=== PATIENT | female | born 1975 | race Two or more races ===

== ENCOUNTER 2017-06-15 18:26 | Inpatient (IN) | payer MEDICAID ==
[~2017-06-15] VITALS: Ht 162.6 cm; Wt 95.3 kg
[2017-06-15] MEDS ORDERED: Ketorolac 30mg Inj IV ONE (19:30)
[2017-06-15] MEDS ORDERED: Morphine Sulfate 4mg/ml Inj IVP ONE (19:30)
[2017-06-15 19:47] LABS: APPEARANCE,URINE SLIGHTLY CLOUDY; BILIRUBIN, URINE NEGATIVE (NEGATIVE); COLOR,URINE AMBER; GLUCOSE, URINE (UA) NEGATIVE (NEGATIVE); KETONES,URINE 1+ (NEGATIVE); LEUKOCYTE ESTERASE ,URINE 1+ (NEGATIVE); NITRITE,URINE NEGATIVE (NEGATIVE); PH,URINE 5 (4.5-8.0); PROTEIN,URINE 2+ (NEGATIVE); UROBILINOGEN,URINE 1 MG/DL (0.0-1.0)
[2017-06-15 20:08] LABS: ANION GAP 9 mmol/L (5-15); BLOOD UREA NITROGEN 6 mg/dL (7-18); CALCIUM 9.1 MG/DL (8.5-10.1); CARBON DIOXIDE 27 MMOL/L (21-32); CHLORIDE 101 MMOL/L (98-107); CREATININE 0.8 MG/DL (0.55-1.30); POTASSIUM 3.4 MMOL/L (3.5-5.1); SODIUM 137 MMOL/L (136-145)
[2017-06-15 20:14] LABS: MEAN CORPUSCULAR VOLUME 89 FL (80-99); PLATELET COUNT 363 K/UL (150-450); RED BLOOD COUNT 4.61 M/UL (4.20-5.40); WHITE BLOOD COUNT 12.2 K/UL (4.8-10.8)
[2017-06-15 20:22] VITALS: BP 109/65
[2017-06-15 20:30] LABS: ALANINE AMINOTRANSFERASE 180 U/L (12-78); ALBUMIN 3.7 G/DL (3.4-5.0); ALBUMIN/GLOBULIN RATIO 0.8 (1.0-2.7); ALKALINE PHOSPHATASE 158 U/L (46-116); ASPARTATE AMINO TRANSFERASE 275 U/L (15-37); BILIRUBIN,TOTAL 2.2 MG/DL (0.2-1.0)
[2017-06-15 20:43] LABS: BILIRUBIN,DIRECT 0.7 MG/DL (0.0-0.3)
[2017-06-15] MEDS ORDERED: Cefepime 1gm vial ONE (20:53)
[2017-06-15] MEDS ORDERED: Cefepime HCl 1 GM in D5W 55 ML IVPB ONE (21:00)
[2017-06-15 22:30] VITALS: BP 112/68
[2017-06-15] MEDS ORDERED: Piperacillin/Tazobactam 3.375 GM in NS 110 ML IVPB ONE (22:45)
--- NOTE | 2017-06-15 22:50 | Emergency Room Report ---
History of Present Illness General Chief Complaint: Abdominal Pain Source: Patient Present Illness HPI Patient presents with 2-3 days of RUQ pain. Pain is 8-9/10, constant and radiates to her back. Not eating for 1 day. Feverish, but no documented temperature. She had this pain 1 month ago, but did not seek treatment. She took stool softener and moved her bowels today. No other medicines taken for pain. No chest pain, cough, sore throat, dysuria. Menses irregular due to IUD - LNMP 05/15. She doesn't think she is . Allergies: Coded Allergies: No Known Allergies (Unverified , 06/15/17) Patient History Past Medical History: see triage record Social History: Denies: smoking, alcohol use Social History Narrative Has 4 children - youngest 4 and oldest 15 - Last Menstrual Period: last month Now: No Reviewed Nursing Documentation: PMH: Agreed, PSxH: Agreed Nursing Documentation-PMH Past Medical History: No Stated History Review of Systems All Other Systems: negative except mentioned in HPI Physical Exam Vital Signs Date Time Temp Pulse Resp B/P (MAP) Pulse Ox O2 Delivery O2 Flow Rate FiO2 06/15/17 18:45 98.7 111 22 111/70 98 Room Air 98.8 Sp02 EP Interpretation: reviewed, normal General Appearance: well appearing, no apparent distress - in pain, GCS 15 Head: normocephalic Eyes: bilateral eye normal inspection, bilateral eye PERRL, bilateral eye anticteric ENT: moist mucus membranes Neck: supple Respiratory: lungs clear, normal breath sounds Cardiovascular #1: regular rate, rhythm Cardiovascular #2: 2+ radial (R) Gastrointestinal: normal inspection, normal bowel sounds, no mass, non- distended, no rebound, guarding - RUQ, tenderness Genitourinary: no CVA tenderness Musculoskeletal: back normal, gait/station normal, normal range of motion Neurologic: alert, oriented x3, grossly normal Psychiatric: mood/affect normal Skin: normal inspection, warm/dry Medical Decision Making Diagnostic Impression: Primary Impression: Acute cholecystitis ER Course Patient presents with right upper quadrant pain. She has significant guarding. Differential includes acute cholecystitis, cholelithiasis, peptic ulcer disease, pancreatitis amongst others She is at risk for having cholecystitis. Evaluation will be with labs and ultrasound. She'll be getting IV hydration and analgesics. Labs are significant for leukocytosis and elevated liver function tests. Cefepime is begun. Pain is somewhat improved. Ultrasound was performed that showed thickened gallbladder wall and gallstones. The there is negative Cervantes's sign at this time. Patient is pain-free at this time however because of labs shows a diagnosis of acute cholecystitis and is admitted to the hospital under the care of Dr. Hughes. The patient was discussed with Dr. Azul who agreed to consult and was considering surgery in the morning. The diagnosis and the possibility of surgery was discussed with of the patient and her . Laboratory Tests Test 06/15/17 19:20 06/15/17 19:35 Urine Color Cristina Urine Appearance Slightly cloudy Urine pH 5 (4.5-8.0) Urine Specific [place] 1.020 (1.005-1.035) Urine Protein 2+ (NEGATIVE) H Urine Glucose (UA) Negative (NEGATIVE) Urine Ketones 1+ (NEGATIVE) H Urine Occult Blood 3+ (NEGATIVE) H Urine Nitrite Negative (NEGATIVE) Urine Bilirubin Negative (NEGATIVE) Urine Ictotest Negative Urine Urobilinogen 1 MG/DL (0.0-1.0) H Urine Leukocyte Esterase 1+ (NEGATIVE) H Urine RBC 15-20 /HPF (0 - 2) H Urine WBC 5-10 /HPF (0 - 2) H Urine Squamous Epithelial Cells Many /LPF (NONE/OCC) H Urine Bacteria Few /HPF (NONE) Urine HCG, Qualitative Negative (NEGATIVE) White Blood Count 12.2 K/UL (4.8-10.8) H Red Blood Count 4.61 M/UL (4.20-5.40) Hemoglobin 14.0 G/DL (12.0-16.0) Hematocrit 41.0 % (37.0-47.0) Mean Corpuscular Volume 89 FL (80-99) Mean Corpuscular Hemoglobin 30.4 PG (27.0-31.0) Mean Corpuscular Hemoglobin Concent 34.2 G/DL (32.0-36.0) Red Cell Distribution Width 12.0 % (11.6-14.8) Platelet Count 363 K/UL (150-450) Mean Platelet Volume 7.7 FL (6.5-10.1) Neutrophils (%) (Auto) % (45.0-75.0) Lymphocytes (%) (Auto) % (20.0-45.0) Monocytes (%) (Auto) % (1.0-10.0) Eosinophils (%) (Auto) % (0.0-3.0) Basophils (%) (Auto) % (0.0-2.0) Differential Total Cells Counted 100 Neutrophils % (Manual) 90 % (45-75) H Lymphocytes % (Manual) 8 % (20-45) L Monocytes % (Manual) 2 % (1-10) Eosinophils % (Manual) 0 % (0-3) Basophils % (Manual) 0 % (0-2) Band Neutrophils 0 % (0-8) Platelet Estimate Adequate Platelet Morphology Normal Red Blood Cell Morphology Normal Prothrombin Time 10.3 SEC (9.30-11.50) Prothrombin Time INR 1.0 (0.9-1.1) PTT 28 SEC (23-33) Sodium Level 137 MMOL/L (136-145) Potassium Level 3.4 MMOL/L (3.5-5.1) L Chloride Level 101 MMOL/L (98-107) Carbon Dioxide Level 27 MMOL/L (21-32) Anion Gap 9 mmol/L (5-15) Blood Urea Nitrogen 6 mg/dL (7-18) L Creatinine 0.8 MG/DL (0.55-1.30) Estimate Glomerular Filtration Rate > 60 mL/min (>60) Glucose Level 113 MG/DL (74-106) H Calcium Level 9.1 MG/DL (8.5-10.1) Total Bilirubin 2.2 MG/DL (0.2-1.0) H Direct Bilirubin 0.7 MG/DL (0.0-0.3) H Aspartate Amino Transferase (AST) 275 U/L (15-37) H Alanine Aminotransferase (ALT) 180 U/L (12-78) H Alkaline Phosphatase 158 U/L (46-116) H Total Protein 8.4 G/DL (6.4-8.2) H Albumin 3.7 G/DL (3.4-5.0) Globulin 4.7 g/dL Albumin/Globulin Ratio 0.8 (1.0-2.7) L Lipase 100 U/L (73-393) CT/MRI/US Diagnostic Results CT/MRI/US Diagnostic Results : Imaging Test Ordered: abd ultrasound Impression gallstones and thickened gall bladder wall. Last Vital Signs Date Time Temp Pulse Resp B/P (MAP) Pulse Ox O2 Delivery O2 Flow Rate FiO2 06/16/17 01:38 98.6 86 15 95/52 100 Room Air 98.6 Status: improved Disposition: ADMITTED INPATIENT Condition: Serious Scripts No Active Prescriptions or Reported Meds Referrals: NOT CHOSEN IPA/,REFERRING (PCP) Dariel Benítez M.D. Jun 15, 2017 22:50
[2017-06-15] MEDS ORDERED: Zosyn 3.375gm inj ONE (22:59)
[2017-06-16] VITALS (8 sets, daily range): BP systolic 95–121; BP diastolic 52–77
[2017-06-16] MEDS: D5 1/2NS 1,000 ML IV SCH ×2 (03:52→08:18)
[2017-06-16 04:19] LABS: EOSINOPHILS % (AUTO) 1.5 % (0.0-3.0); HEMATOCRIT 33.5 % (37.0-47.0); HEMOGLOBIN 11.5 G/DL (12.0-16.0); LYMPHOCYTES % (AUTO) 32.4 % (20.0-45.0); MEAN CORPUSCULAR VOLUME 89 FL (80-99); MONOCYTES % (AUTO) 9.5 % (1.0-10.0); NEUTROPHILS % (AUTO) 55.7 % (45.0-75.0); PLATELET COUNT 268 K/UL (150-450); RED BLOOD COUNT 3.75 M/UL (4.20-5.40); WHITE BLOOD COUNT 6.1 K/UL (4.8-10.8)
[2017-06-16 04:34] LABS: ANION GAP 3 mmol/L (5-15); BLOOD UREA NITROGEN 4 mg/dL (7-18); CARBON DIOXIDE 30 MMOL/L (21-32); CHLORIDE 106 MMOL/L (98-107); CREATININE 0.8 MG/DL (0.55-1.30); POTASSIUM 3.8 MMOL/L (3.5-5.1); SODIUM 139 MMOL/L (136-145)
--- NOTE | 2017-06-16 08:56 | General Surgery Progress Note ---
General Surgery-Progress Note Subjective Symptoms: improved Objective Last 24 Hour Vital Signs Date Time Temp Pulse Resp B/P (MAP) Pulse Ox O2 Delivery O2 Flow Rate FiO2 06/16/17 08:00 97.7 81 18 121/77 97 97.7 06/16/17 07:40 98.5 80 17 108/66 98 Room Air 98.8 06/16/17 06:16 98.8 77 15 99/53 100 Room Air 98.8 06/16/17 04:26 98.6 75 15 98/54 100 Room Air 98.6 06/16/17 02:34 98.6 82 15 98/58 100 Room Air 98.6 06/16/17 01:38 98.6 86 15 95/52 100 Room Air 98.6 06/16/17 00:23 98.3 91 13 96/58 97 Room Air 98.3 06/15/17 22:30 98.5 103 14 112/68 100 Room Air 98.5 06/15/17 20:37 98.6 06/15/17 20:22 98.6 99 21 109/65 100 Room Air 98.6 06/15/17 20:17 98.7 06/15/17 20:07 98.7 06/15/17 19:47 98.7 06/15/17 18:45 98.7 111 22 111/70 98 Room Air 98.8 I&O Intake and Output 06/15/17 06/16/17 19:00 07:00 Intake Total 1000 ml Balance 1000 ml Intake Oral 0 ml IV Total 1000 ml # Voids 1 Respiratory: clear Abdomen: soft, flat, non-tender, present bowel sounds Extremities: no tenderness Laboratory Tests Test 06/15/17 19:20 06/15/17 19:35 06/16/17 04:05 Urine Color Cristina Urine Appearance Slightly cloudy Urine pH 5 (4.5-8.0) Urine Specific [place] 1.020 (1.005-1.035) Urine Protein 2+ (NEGATIVE) H Urine Glucose (UA) Negative (NEGATIVE) Urine Ketones 1+ (NEGATIVE) H Urine Occult Blood 3+ (NEGATIVE) H Urine Nitrite Negative (NEGATIVE) Urine Bilirubin Negative (NEGATIVE) Urine Ictotest Negative Urine Urobilinogen 1 MG/DL (0.0-1.0) H Urine Leukocyte Esterase 1+ (NEGATIVE) H Urine RBC 15-20 /HPF (0 - 2) H Urine WBC 5-10 /HPF (0 - 2) H Urine Squamous Epithelial Cells Many /LPF (NONE/OCC) H Urine Bacteria Few /HPF (NONE) Urine HCG, Qualitative Negative (NEGATIVE) White Blood Count 12.2 K/UL (4.8-10.8) H 6.1 K/UL (4.8-10.8) Red Blood Count 4.61 M/UL (4.20-5.40) 3.75 M/UL (4.20-5.40) L Hemoglobin 14.0 G/DL (12.0-16.0) 11.5 G/DL (12.0-16.0) L Hematocrit 41.0 % (37.0-47.0) 33.5 % (37.0-47.0) L Mean Corpuscular Volume 89 FL (80-99) 89 FL (80-99) Mean Corpuscular Hemoglobin 30.4 PG (27.0-31.0) 30.7 PG (27.0-31.0) Mean Corpuscular Hemoglobin Concent 34.2 G/DL (32.0-36.0) 34.3 G/DL (32.0-36.0) Red Cell Distribution Width 12.0 % (11.6-14.8) 12.0 % (11.6-14.8) Platelet Count 363 K/UL (150-450) 268 K/UL (150-450) Mean Platelet Volume 7.7 FL (6.5-10.1) 8.2 FL (6.5-10.1) Neutrophils (%) (Auto) % (45.0-75.0) 55.7 % (45.0-75.0) Lymphocytes (%) (Auto) % (20.0-45.0) 32.4 % (20.0-45.0) Monocytes (%) (Auto) % (1.0-10.0) 9.5 % (1.0-10.0) Eosinophils (%) (Auto) % (0.0-3.0) 1.5 % (0.0-3.0) Basophils (%) (Auto) % (0.0-2.0) 1.0 % (0.0-2.0) Differential Total Cells Counted 100 Neutrophils % (Manual) 90 % (45-75) H Lymphocytes % (Manual) 8 % (20-45) L Monocytes % (Manual) 2 % (1-10) Eosinophils % (Manual) 0 % (0-3) Basophils % (Manual) 0 % (0-2) Band Neutrophils 0 % (0-8) Platelet Estimate Adequate Platelet Morphology Normal Red Blood Cell Morphology Normal Prothrombin Time 10.3 SEC (9.30-11.50) Prothromb Time International Ratio 1.0 (0.9-1.1) Activated Partial Thromboplast Time 28 SEC (23-33) Sodium Level 137 MMOL/L (136-145) 139 MMOL/L (136-145) Potassium Level 3.4 MMOL/L (3.5-5.1) L 3.8 MMOL/L (3.5-5.1) Chloride Level 101 MMOL/L (98-107) 106 MMOL/L (98-107) Carbon Dioxide Level 27 MMOL/L (21-32) 30 MMOL/L (21-32) Anion Gap 9 mmol/L (5-15) 3 mmol/L (5-15) L Blood Urea Nitrogen 6 mg/dL (7-18) L 4 mg/dL (7-18) L Creatinine 0.8 MG/DL (0.55-1.30) 0.8 MG/DL (0.55-1.30) Estimat Glomerular Filtration Rate > 60 mL/min (>60) > 60 mL/min (>60) Glucose Level 113 MG/DL (74-106) H 109 MG/DL (74-106) H Calcium Level 9.1 MG/DL (8.5-10.1) 8.0 MG/DL (8.5-10.1) L Total Bilirubin 2.2 MG/DL (0.2-1.0) H Direct Bilirubin 0.7 MG/DL (0.0-0.3) H Aspartate Amino Transf (AST/SGOT) 275 U/L (15-37) H Alanine Aminotransferase (ALT/SGPT) 180 U/L (12-78) H Alkaline Phosphatase 158 U/L (46-116) H Total Protein 8.4 G/DL (6.4-8.2) H Albumin 3.7 G/DL (3.4-5.0) Globulin 4.7 g/dL Albumin/Globulin Ratio 0.8 (1.0-2.7) L Lipase 100 U/L (73-393) Assessment Additional Comments Cholelithiasis Plan Additional Comments patient does not have any pain at this time she will be started on diet. If she can tolerate diet she can be discharged home. Follow up with [facility] for elective cholecystectomy GARRETT IRAHETA Jun 16, 2017 08:55
--- NOTE | 2017-06-16 10:21 | Diagnostic Imaging Report ---
Indication: Right upper quadrant pain x2 days Technique: Cabrera-scale and duplex images of the upper abdomen were obtained Comparison: none Findings: Gallbladder demonstrates gallstones. The gallbladder wall is markedly thickened, measuring 14 mm thick. There is also some pericholecystic fluid. Sonographic Cervantes's sign is negative, although technologist reports the patient is on pain medications. Common bile duct measures 6 mm in diameter. No intrahepatic biliary ductal dilatation. Liver demonstrates normal echogenicity, no focal abnormality. Portal vein and hepatic veins are patent. Pancreas is unremarkable. Spleen is unremarkable. Left kidney measures 11 cm in length. Right kidney measures 11 cm length. Both kidneys demonstrate normal echogenicity. There is no hydronephrosis. No focal abnormality . Abdominal aorta was not imaged, reason not stated . Impression: Cholelithiasis. Gallbladder wall is markedly thickened, measuring 14 mm. While possibly representing acute cholecystitis, this degree of wall thickening is somewhat unusual, and could indicate adjacent hepatocellular inflammation. Recommend relational liver function tests, consider hepatobiliary nuclear scan for further evaluation Negative for dilated ducts Note nonvisualization of the abdominal aorta, reason not stated
--- NOTE | 2017-06-16 11:15 | Consultation ---
DATE OF CONSULTATION: 06/16/2017 CONSULTING PHYSICIAN: Jaziel Azul M.D. REASON FOR CONSULTATION: Abdominal pain. REQUESTING PHYSICIAN: Alfredo Hughes D.O. HISTORY OF PRESENT ILLNESS: This is a 42-year-old female, who presented to emergency room complaining of abdominal pain for two days. The pain was located at right upper quadrant and associated with nausea and vomiting. She denied any fever, cough, dysuria, or frequency. She stated that a month ago, she had similar pain, but it was of less intensity. In the emergency room, ultrasound has been performed which has shown cholelithiasis. PAST MEDICAL HISTORY: She denied allergies, asthma, diabetes, hypertension, chronic renal disease. PAST SURGICAL HISTORY: None. MEDICATIONS: None. SOCIAL HISTORY: The patient is a 42-year-old female, who is with three children. She is unemployed. Denies smoking and drinking. REVIEW OF SYSTEMS: Noncontributory. PHYSICAL EXAMINATION: GENERAL: The patient appeared to be a well-developed, well-nourished, 42-year-old female, lying in the bed, in no acute distress. HEENT: Head is normocephalic and atraumatic. Eyes, pupils are equal, round, and reactive to light. The sclerae are nonicteric. Mouth is clear. Throat is clear. NECK: There is no palpable thyromegaly or adenopathy. CHEST: Clear to auscultation and percussion. HEART: There is no gallop or murmur. S1 and S2 are within normal limits. ABDOMEN: Soft, flat, nontender. There is no palpable organomegaly. Bowel sounds are audible. GENITAL: Deferred. EXTREMITIES: Within normal limits. LABORATORY AND DIAGNOSTIC DATA: CBC, last night was 12,200 with left shift, but this morning, WBC is 6100 with normal differential. Chemistry last night showed total bilirubin of 2.2 with direct bilirubin of 0.7. The liver enzymes were slightly elevated. Ultrasound had shown cholelithiasis. ASSESSMENT: Cholelithiasis. RECOMMENDATION: At this time, the pain has been resolved and the patient is not nauseated, so she will be started on diet and if she can tolerate the diet, she can be discharged home to be followed at the [facility] for an elective laparoscopic cholecystectomy. Jaziel Azul M.D. DR: Kamilah JOB#: [id number] CC:
--- NOTE | 2017-06-16 11:34 | GI Initial Consult Note ---
History of Present Illness General Date patient seen: Jun 16, 2017 Time patient seen: 11:32 Reason for Hospitalization: Abdominal Pain Referring physician: MATTHEW CRUZ Reason for Consultation: ABDOMINAL PAIN Present Illness HPI Patient presents with 2-3 days of RUQ pain. Pain is 8-9/10, constant and radiates to her back. Not eating for 1 day. Feverish, but no documented temperature. She had this pain 1 month ago, but did not seek treatment. She took stool softener and moved her bowels today. No other medicines taken for pain. No chest pain, cough, sore throat, dysuria. Menses irregular due to IUD - LNMP 05/15. She doesn't think she is . GI consulted for abdominal pain. Pt seen, awake A&Ox4 NAD with no active s/sx of N/V/D. States her abdominal pain is gone, but has abdominal tenderness. U/ S down in ED shows thickened gallbladder wall and gallstones. The there is negative Cervantes's sign at this time. She presents today with abnormal LFTs. No history of endoscopy / colonoscopy. Home Meds No Active Prescriptions or Reported Meds Med list reviewed/reconciled: Yes Allergies: Coded Allergies: No Known Allergies (Unverified , 06/15/17) Patient History History Provided By: Patient, Medical Record PMH Narrative Past Medical History: see triage record Social History: Denies: smoking, alcohol use Social History Narrative Has 4 children - youngest 4 and oldest 15 - Last Menstrual Period: last month Now: No Reviewed Nursing Documentation: PMH: Agreed, PSxH: Agreed Nursing Documentation-PM Past Medical History: No Stated History Review of Systems All Other Systems: negative except mentioned in HPI Physical Exam Vital Signs Date Time Temp Pulse Resp B/P (MAP) Pulse Ox O2 Delivery O2 Flow Rate FiO2 06/15/17 18:45 98.7 111 22 111/70 98 Room Air 98.8 Sp02 EP Interpretation: reviewed, normal Labs Laboratory Tests Test 06/15/17 19:20 06/15/17 19:35 06/16/17 04:05 Urine Color Cristina Urine Appearance Slightly cloudy Urine pH 5 (4.5-8.0) Urine Specific [place] 1.020 (1.005-1.035) Urine Protein 2+ (NEGATIVE) H Urine Glucose (UA) Negative (NEGATIVE) Urine Ketones 1+ (NEGATIVE) H Urine Occult Blood 3+ (NEGATIVE) H Urine Nitrite Negative (NEGATIVE) Urine Bilirubin Negative (NEGATIVE) Urine Ictotest Negative Urine Urobilinogen 1 MG/DL (0.0-1.0) H Urine Leukocyte Esterase 1+ (NEGATIVE) H Urine RBC 15-20 /HPF (0 - 2) H Urine WBC 5-10 /HPF (0 - 2) H Urine Squamous Epithelial Cells Many /LPF (NONE/OCC) H Urine Bacteria Few /HPF (NONE) Urine HCG, Qualitative Negative (NEGATIVE) White Blood Count 12.2 K/UL (4.8-10.8) H 6.1 K/UL (4.8-10.8) Red Blood Count 4.61 M/UL (4.20-5.40) 3.75 M/UL (4.20-5.40) L Hemoglobin 14.0 G/DL (12.0-16.0) 11.5 G/DL (12.0-16.0) L Hematocrit 41.0 % (37.0-47.0) 33.5 % (37.0-47.0) L Mean Corpuscular Volume 89 FL (80-99) 89 FL (80-99) Mean Corpuscular Hemoglobin 30.4 PG (27.0-31.0) 30.7 PG (27.0-31.0) Mean Corpuscular Hemoglobin Concent 34.2 G/DL (32.0-36.0) 34.3 G/DL (32.0-36.0) Red Cell Distribution Width 12.0 % (11.6-14.8) 12.0 % (11.6-14.8) Platelet Count 363 K/UL (150-450) 268 K/UL (150-450) Mean Platelet Volume 7.7 FL (6.5-10.1) 8.2 FL (6.5-10.1) Neutrophils (%) (Auto) % (45.0-75.0) 55.7 % (45.0-75.0) Lymphocytes (%) (Auto) % (20.0-45.0) 32.4 % (20.0-45.0) Monocytes (%) (Auto) % (1.0-10.0) 9.5 % (1.0-10.0) Eosinophils (%) (Auto) % (0.0-3.0) 1.5 % (0.0-3.0) Basophils (%) (Auto) % (0.0-2.0) 1.0 % (0.0-2.0) Differential Total Cells Counted 100 Neutrophils % (Manual) 90 % (45-75) H Lymphocytes % (Manual) 8 % (20-45) L Monocytes % (Manual) 2 % (1-10) Eosinophils % (Manual) 0 % (0-3) Basophils % (Manual) 0 % (0-2) Band Neutrophils 0 % (0-8) Platelet Estimate Adequate Platelet Morphology Normal Red Blood Cell Morphology Normal Prothrombin Time 10.3 SEC (9.30-11.50) Prothromb Time International Ratio 1.0 (0.9-1.1) Activated Partial Thromboplast Time 28 SEC (23-33) Sodium Level 137 MMOL/L (136-145) 139 MMOL/L (136-145) Potassium Level 3.4 MMOL/L (3.5-5.1) L 3.8 MMOL/L (3.5-5.1) Chloride Level 101 MMOL/L (98-107) 106 MMOL/L (98-107) Carbon Dioxide Level 27 MMOL/L (21-32) 30 MMOL/L (21-32) Anion Gap 9 mmol/L (5-15) 3 mmol/L (5-15) L Blood Urea Nitrogen 6 mg/dL (7-18) L 4 mg/dL (7-18) L Creatinine 0.8 MG/DL (0.55-1.30) 0.8 MG/DL (0.55-1.30) Estimat Glomerular Filtration Rate > 60 mL/min (>60) > 60 mL/min (>60) Glucose Level 113 MG/DL (74-106) H 109 MG/DL (74-106) H Calcium Level 9.1 MG/DL (8.5-10.1) 8.0 MG/DL (8.5-10.1) L Total Bilirubin 2.2 MG/DL (0.2-1.0) H Direct Bilirubin 0.7 MG/DL (0.0-0.3) H Aspartate Amino Transf (AST/SGOT) 275 U/L (15-37) H Alanine Aminotransferase (ALT/SGPT) 180 U/L (12-78) H Alkaline Phosphatase 158 U/L (46-116) H Total Protein 8.4 G/DL (6.4-8.2) H Albumin 3.7 G/DL (3.4-5.0) Globulin 4.7 g/dL Albumin/Globulin Ratio 0.8 (1.0-2.7) L Lipase 100 U/L (73-393) General Appearance: well appearing, no apparent distress, alert, obese Head: normocephalic EENT: PERRL/EOMI, normal ENT inspection Neck: supple Respiratory: normal breath sounds, no respiratory distress Cardiovascular: normal rate Gastrointestinal: normal inspection, non tender, soft, normal bowel sounds, non -distended Rectal: deferred Genitourinary: no CVA tenderness Musculoskeletal: normal inspection, back normal Neurologic: normal inspection, alert, oriented x3, responsive Psychiatric: normal inspection, judgement/insight normal, memory normal Skin: normal inspection, normal color, no rash, warm/dry, palpation normal, well hydrated Lymphatic: normal inspection, no adenopathy Current Medications Current Medications Medications (Trade) Dose Ordered Sig/Sarika Route PRN Reason Start Time Stop Time Status Last Admin Dose Admin Acetaminophen (Tylenol) 650 mg Q4H PRN ORAL Mild Pain (Pain Scale 1-3) 06/16/17 03:30 07/16/17 03:29 06/16/17 10:17 Dextrose/Sodium Chloride 1,000 ml @ 50 mls/hr Q20H IV 06/16/17 03:30 07/16/17 03:29 06/16/17 03:52 Morphine Sulfate (Morphine Sulfate) 2 mg Q4H PRN IVP For Pain 06/16/17 03:30 06/23/17 03:29 Ondansetron HCl (Zofran) 4 mg Q4H PRN IVP Nausea & Vomiting 06/16/17 03:30 07/16/17 03:29 GI: Plan Problems: (1) Acute cholecystitis (2) Cholecystitis Plan f/u surgical recs >> no surgical intervention at this time f/u abdominal U/S adv diet as tolerated pain mgmt ppi trend LFTs fu labs Discussed with Dr. Keith. Thank you for this patient referral, we will follow. Cora Merritt N.P. Jun 16, 2017 11:34
--- NOTE | 2017-06-16 11:44 | Consultation ---
History of Present Illness General Date patient seen: Jun 16, 2017 Time patient seen: 11:34 Chief Complaint: Abdominal Pain Present Illness HPI 42 y/o F with no prior medical hx presents to ED on 06/15 with 2 days of constant RUQ abd pain w/ radiation to the back associated with nausea and vomiting, subjective fevers. Of note, had similar episodes about 1 month ago but of less intensity. Denies fever, cough, dysuria, frequency, CP, sore throat. Afebrile, initial leukocytosis, now resolved. Abd US choleithiasis, now pain has resolved. eating. Allergies: Coded Allergies: No Known Allergies (Unverified , 06/15/17) Medication History No Active Prescriptions or Reported Meds Patient History Healthcare decision maker Resuscitation status Advanced Directive on File Patient History Narrative Pmhx: as above Shx: with three children. She is unemployed. Denies smoking and drinking. Fhx: non contributory Review of Systems All Other Systems: negative except mentioned in HPI Physical Exam Physical Exam Narrative GENERAL: The patient appeared to be a well-developed, well-nourished, 42-year-old female, lying in the bed, in no acute distress. HEENT: Head is normocephalic and atraumatic. Eyes, pupils are equal, round, and reactive to light. The sclerae are nonicteric. Mouth is clear. Throat is clear. NECK: There is no palpable thyromegaly or adenopathy. CHEST: Clear to auscultation and percussion. HEART: There is no gallop or murmur. S1 and S2 are within normal limits. ABDOMEN: Soft, flat, nontender. There is no palpable organomegaly. Bowel sounds are audible. EXTREMITIES: Within normal limits Last 24 Hour Vital Signs Date Time Temp Pulse Resp B/P (MAP) Pulse Ox O2 Delivery O2 Flow Rate FiO2 06/16/17 11:16 97.7 06/16/17 08:00 97.7 81 18 121/77 97 97.7 06/16/17 07:40 98.5 80 17 108/66 98 Room Air 98.8 06/16/17 06:16 98.8 77 15 99/53 100 Room Air 98.8 06/16/17 04:26 98.6 75 15 98/54 100 Room Air 98.6 3/19/18 02:34 98.6 82 15 98/58 100 Room Air 98.6 06/16/17 01:38 98.6 86 15 95/52 100 Room Air 98.6 06/16/17 00:23 98.3 91 13 96/58 97 Room Air 98.3 06/15/17 22:30 98.5 103 14 112/68 100 Room Air 98.5 06/15/17 20:37 98.6 06/15/17 20:22 98.6 99 21 109/65 100 Room Air 98.6 06/15/17 20:17 98.7 06/15/17 20:07 98.7 06/15/17 19:47 98.7 06/15/17 18:45 98.7 111 22 111/70 98 Room Air 98.8 Intake and Output 06/15/17 06/16/17 19:00 07:00 Intake Total 1000 ml Balance 1000 ml Intake Oral 0 ml IV Total 1000 ml # Voids 1 Laboratory Tests Test 06/15/17 19:20 06/15/17 19:35 06/16/17 04:05 Urine Color Cristina Urine Appearance Slightly cloudy Urine pH 5 (4.5-8.0) Urine Specific [place] 1.020 (1.005-1.035) Urine Protein 2+ (NEGATIVE) H Urine Glucose (UA) Negative (NEGATIVE) Urine Ketones 1+ (NEGATIVE) H Urine Occult Blood 3+ (NEGATIVE) H Urine Nitrite Negative (NEGATIVE) Urine Bilirubin Negative (NEGATIVE) Urine Ictotest Negative Urine Urobilinogen 1 MG/DL (0.0-1.0) H Urine Leukocyte Esterase 1+ (NEGATIVE) H Urine RBC 15-20 /HPF (0 - 2) H Urine WBC 5-10 /HPF (0 - 2) H Urine Squamous Epithelial Cells Many /LPF (NONE/OCC) H Urine Bacteria Few /HPF (NONE) Urine HCG, Qualitative Negative (NEGATIVE) White Blood Count 12.2 K/UL (4.8-10.8) H 6.1 K/UL (4.8-10.8) Red Blood Count 4.61 M/UL (4.20-5.40) 3.75 M/UL (4.20-5.40) L Hemoglobin 14.0 G/DL (12.0-16.0) 11.5 G/DL (12.0-16.0) L Hematocrit 41.0 % (37.0-47.0) 33.5 % (37.0-47.0) L Mean Corpuscular Volume 89 FL (80-99) 89 FL (80-99) Mean Corpuscular Hemoglobin 30.4 PG (27.0-31.0) 30.7 PG (27.0-31.0) Mean Corpuscular Hemoglobin Concent 34.2 G/DL (32.0-36.0) 34.3 G/DL (32.0-36.0) Red Cell Distribution Width 12.0 % (11.6-14.8) 12.0 % (11.6-14.8) Platelet Count 363 K/UL (150-450) 268 K/UL (150-450) Mean Platelet Volume 7.7 FL (6.5-10.1) 8.2 FL (6.5-10.1) Neutrophils (%) (Auto) % (45.0-75.0) 55.7 % (45.0-75.0) Lymphocytes (%) (Auto) % (20.0-45.0) 32.4 % (20.0-45.0) Monocytes (%) (Auto) % (1.0-10.0) 9.5 % (1.0-10.0) Eosinophils (%) (Auto) % (0.0-3.0) 1.5 % (0.0-3.0) Basophils (%) (Auto) % (0.0-2.0) 1.0 % (0.0-2.0) Differential Total Cells Counted 100 Neutrophils % (Manual) 90 % (45-75) H Lymphocytes % (Manual) 8 % (20-45) L Monocytes % (Manual) 2 % (1-10) Eosinophils % (Manual) 0 % (0-3) Basophils % (Manual) 0 % (0-2) Band Neutrophils 0 % (0-8) Platelet Estimate Adequate Platelet Morphology Normal Red Blood Cell Morphology Normal Prothrombin Time 10.3 SEC (9.30-11.50) Prothromb Time International Ratio 1.0 (0.9-1.1) Activated Partial Thromboplast Time 28 SEC (23-33) Sodium Level 137 MMOL/L (136-145) 139 MMOL/L (136-145) Potassium Level 3.4 MMOL/L (3.5-5.1) L 3.8 MMOL/L (3.5-5.1) Chloride Level 101 MMOL/L (98-107) 106 MMOL/L (98-107) Carbon Dioxide Level 27 MMOL/L (21-32) 30 MMOL/L (21-32) Anion Gap 9 mmol/L (5-15) 3 mmol/L (5-15) L Blood Urea Nitrogen 6 mg/dL (7-18) L 4 mg/dL (7-18) L Creatinine 0.8 MG/DL (0.55-1.30) 0.8 MG/DL (0.55-1.30) Estimat Glomerular Filtration Rate > 60 mL/min (>60) > 60 mL/min (>60) Glucose Level 113 MG/DL (74-106) H 109 MG/DL (74-106) H Calcium Level 9.1 MG/DL (8.5-10.1) 8.0 MG/DL (8.5-10.1) L Total Bilirubin 2.2 MG/DL (0.2-1.0) H Direct Bilirubin 0.7 MG/DL (0.0-0.3) H Aspartate Amino Transf (AST/SGOT) 275 U/L (15-37) H Alanine Aminotransferase (ALT/SGPT) 180 U/L (12-78) H Alkaline Phosphatase 158 U/L (46-116) H Total Protein 8.4 G/DL (6.4-8.2) H Albumin 3.7 G/DL (3.4-5.0) Globulin 4.7 g/dL Albumin/Globulin Ratio 0.8 (1.0-2.7) L Lipase 100 U/L (73-393) Height (Feet): 5 Height (Inches): 4.00 Weight (Pounds): 210 Medications Current Medications Medications (Trade) Dose Ordered Sig/Sarika Route PRN Reason Start Time Stop Time Status Last Admin Dose Admin Acetaminophen (Tylenol) 650 mg Q4H PRN ORAL Mild Pain (Pain Scale 1-3) 06/16/17 03:30 07/16/17 03:29 06/16/17 10:17 Dextrose/Sodium Chloride 1,000 ml @ 50 mls/hr Q20H IV 06/16/17 03:30 07/16/17 03:29 06/16/17 03:52 Morphine Sulfate (Morphine Sulfate) 2 mg Q4H PRN IVP For Pain 06/16/17 03:30 06/23/17 03:29 Ondansetron HCl (Zofran) 4 mg Q4H PRN IVP Nausea & Vomiting 06/16/17 03:30 07/16/17 03:29 Assessment/Plan Assessment/Plan Abx: Zosyn x1 06/15 Cefepime x1 06/15 Assessment: Biliary colic, resolved Symptomatic cholelithiasis -Abd US: Cholelithiasis. Gallbladder wall is markedly thickened, measuring 14 mm.While possibly representing acute cholecystitis, this degree of wall thickening is somewhat unusual, and could indicate adjacent hepatocellular inflammation. Recommend relational liver function tests, consider hepatobiliary nuclear scan for further evaluation. Negative for dilated ducts Mild leukocytosis, resolved- likely reactive -afebrile -u/a wbc 5-10, nit negm leuk +1 Elevated LFTs, bilirubin Plan: -Continue to monitor off abx -Monitor CBC/CMP, temperatures -symptomatic treatment -outpatient surgery f/u Thank you for this consultation. Will continue to follow along with you. Discussed with NICOLE. Garima Elizabeth M.D. Jun 16, 2017 11:44
[2017-06-16] MEDS: Morphine Sulfate 2mg/ml Inj IVP PRN (14:55)
--- NOTE | 2017-06-16 17:50 | Diagnostic Imaging Report ---
Indications: 42 year old female with abdominal pain and abnormal ultrasound Technique: IV administration 5.4 mCi 99 M technetium Choletec. Serial images obtained over the abdomen for 2 hrs Comparison: None Findings: Prompt tracer uptake within the liver. Somewhat slow excretion of tracer. Extrahepatic bile ducts are seen at 43 minutes. Excretion into the duodenum demonstrated at 55 minutes. Gallbladder equivocal early visualized at one hour 49 minutes. Impression: Delayed tracer excretion, suspected on the basis of hepatocellular disease Patent cystic duct and common bile duct
--- NOTE | 2017-06-16 19:15 | History and Physical Report ---
DATE OF ADMISSION: 06/15/2017 TIME SEEN: At 2 p.m. CONSULTANTS: 1. Edwin Keith M.D. 2. Frederic Riggs M.D. 3. Jaziel Azul M.D. CHIEF COMPLAINT: Abdominal pain, nausea, vomiting. HISTORY: This is a 42-year-old female, who lives at home and presented with 2 days of increased nausea, vomiting at home and abdominal pain. The patient came to [place] last night, diagnosed with acute cholecystitis, and admitted to medical floor for further treatment. Currently, slight abdominal pain, no complaint. REVIEW OF SYSTEMS: No chest pain. Slight shortness of breath. Slight nausea and vomiting. No diarrhea. PAST MEDICAL HISTORY: Nothing. PAST SURGICAL HISTORY: Nothing. ALLERGIES: Denies. MEDICATIONS: Include morphine, Zofran, Tylenol, Zosyn, cefepime. SOCIAL HISTORY: No smoking. No alcohol. No intravenous drug abuse. FAMILY HISTORY: Noncontributory. PHYSICAL EXAMINATION: GENERAL: Calm in bed, oriented x3, in no acute distress. VITAL SIGNS: Temperature is 97, pulse 85, respiration 18, blood pressure 98/59. CARDIOVASCULAR: No murmur. LUNGS: Distant and clear. ABDOMEN: Bowel sound positive. Slightly tender. No guarding. No rigidity. No rebound. EXTREMITIES: No cyanosis or edema. NEUROLOGIC: The patient moves all extremities, slightly weak. LABORATORY DATA: Labs at this time show hemoglobin 11.5, otherwise CBC is normal. BMP shows BUN 4, glucose 109, otherwise BMP is normal. AST 275, AST 180, alkaline phosphatase 158. Lipase 100. INR is 1.0, PTT 28. Urinalysis shows 1+ leukocyte esterase. ASSESSMENT: 1. UTI. 2. Abdominal pain. 3. Nausea. 4. Vomiting. 5. Acute cholecystitis. 6. Anemia. PLAN: 1. Antibiotic per Infectious Disease. 2. N.p.o., IV fluid. 3. CBC and BMP in the morning. 4. Dr. Keith, Dr. Riggs, and Dr. Azul to consult. 5. We will continue to follow this patient. Alfredo Hughes, D.O. DR: Bianka JOB#: [id number] CC:
[2017-06-17 00:24] VITALS: BP 100/58
[2017-06-17 04:46] VITALS: BP_SYST 102; BP_DIAS 33; BP_DIAS 63
[2017-06-17 07:42] LABS: BASOPHILS % (AUTO) 0.7 % (0.0-2.0); EOSINOPHILS % (AUTO) 2.6 % (0.0-3.0); HEMATOCRIT 34.7 % (37.0-47.0); HEMOGLOBIN 11.9 G/DL (12.0-16.0); LYMPHOCYTES % (AUTO) 30.8 % (20.0-45.0); MEAN CORPUSCULAR VOLUME 90 FL (80-99); MONOCYTES % (AUTO) 6.5 % (1.0-10.0); NEUTROPHILS % (AUTO) 59.4 % (45.0-75.0); PLATELET COUNT 284 K/UL (150-450); RED BLOOD COUNT 3.84 M/UL (4.20-5.40); RED CELL DISTRIBUTION WIDTH 12.3 % (11.6-14.8); WHITE BLOOD COUNT 4.4 K/UL (4.8-10.8)
[2017-06-17 08:00] VITALS: BP 109/72
[2017-06-17 08:09] LABS: ALANINE AMINOTRANSFERASE 424 U/L (12-78); ALBUMIN/GLOBULIN RATIO 0.7 (1.0-2.7); ALKALINE PHOSPHATASE 166 U/L (46-116); ANION GAP 9 mmol/L (5-15); ASPARTATE AMINO TRANSFERASE 254 U/L (15-37); BILIRUBIN,TOTAL 2.8 MG/DL (0.2-1.0); BLOOD UREA NITROGEN 5 mg/dL (7-18); CALCIUM 8.5 MG/DL (8.5-10.1); CARBON DIOXIDE 26 MMOL/L (21-32); CHLORIDE 107 MMOL/L (98-107); CREATININE 0.6 MG/DL (0.55-1.30); POTASSIUM 3.5 MMOL/L (3.5-5.1); SODIUM 142 MMOL/L (136-145)
[2017-06-17 08:14] LABS: BILIRUBIN,DIRECT 1.6 MG/DL (0.0-0.3)
--- NOTE | 2017-06-17 10:07 | Infectious Diseases Prog Note ---
Assessment/Plan Assessment/Plan Abx: Zosyn x1 06/15 Cefepime x1 06/15 Assessment: Biliary colic, resolved Symptomatic cholelithiasis -Abd US: Cholelithiasis. Gallbladder wall is markedly thickened, measuring 14 mm.While possibly representing acute cholecystitis, this degree of wall thickening is somewhat unusual, and could indicate adjacent hepatocellular inflammation. Recommend relational liver function tests, consider hepatobiliary nuclear scan for further evaluation. Negative for dilated ducts -HIDA scan: Delayed tracer excretion, suspected on the basis of hepatocellular disease Patent cystic duct and common bile duct Mild leukocytosis, resolved- likely reactive -afebrile -u/a wbc 5-10, nit negm leuk +1 Elevated LFTs, bilirubin -r/o viral hepaitis Plan: -Continue to monitor off abx as no evidence of acute cholecystitis on HIDA scan -Hepatitis panel and HIV given elevated LFTs -Monitor CBC/CMP, temperatures -symptomatic treatment -outpatient surgery f/u Thank you for this consultation. Will continue to follow along with you. Discussed with RN. Subjective Allergies: Coded Allergies: No Known Allergies (Unverified , 06/15/17) Subjective afebrile no leukocytosis tolerating luquid diet HIDA did not showed acute cholecystitis Objective Vital Signs Last 24 Hour Vital Signs Date Time Temp Pulse Resp B/P (MAP) Pulse Ox O2 Delivery O2 Flow Rate FiO2 06/17/17 08:00 97.8 105 16 109/72 97 97.8 06/17/17 04:46 97.9 85 20 102/63 95 Room Air 97.9 06/17/17 00:24 97.7 90 20 100/58 97 Room Air 97.7 06/16/17 20:13 97.5 91 20 107/57 96 Room Air 97.5 06/16/17 18:47 97.4 06/16/17 17:48 97.4 06/16/17 17:40 97.4 06/16/17 14:55 97.4 06/16/17 12:00 97.4 85 18 98/59 98 97.4 Height (Feet): 5 Height (Inches): 4.00 Weight (Pounds): 210 Objective GENERAL: The patient appeared to be a well-developed, well-nourished, 42-year-old female, lying in the bed, in no acute distress. HEENT: Head is normocephalic and atraumatic. Eyes, pupils are equal, round, and reactive to light. The sclerae are nonicteric. Mouth is clear. Throat is clear. NECK: There is no palpable thyromegaly or adenopathy. CHEST: Clear to auscultation and percussion. HEART: There is no gallop or murmur. S1 and S2 are within normal limits. ABDOMEN: Soft, flat, nontender. There is no palpable organomegaly. Bowel sounds are audible. EXTREMITIES: Within normal limits Laboratory Tests Test 06/17/17 06:20 White Blood Count 4.4 K/UL (4.8-10.8) L Red Blood Count 3.84 M/UL (4.20-5.40) L Hemoglobin 11.9 G/DL (12.0-16.0) L Hematocrit 34.7 % (37.0-47.0) L Mean Corpuscular Volume 90 FL (80-99) Mean Corpuscular Hemoglobin 31.0 PG (27.0-31.0) Mean Corpuscular Hemoglobin Concent 34.2 G/DL (32.0-36.0) Red Cell Distribution Width 12.3 % (11.6-14.8) Platelet Count 284 K/UL (150-450) Mean Platelet Volume 7.9 FL (6.5-10.1) Neutrophils (%) (Auto) 59.4 % (45.0-75.0) Lymphocytes (%) (Auto) 30.8 % (20.0-45.0) Monocytes (%) (Auto) 6.5 % (1.0-10.0) Eosinophils (%) (Auto) 2.6 % (0.0-3.0) Basophils (%) (Auto) 0.7 % (0.0-2.0) Sodium Level 142 MMOL/L (136-145) Potassium Level 3.5 MMOL/L (3.5-5.1) Chloride Level 107 MMOL/L (98-107) Carbon Dioxide Level 26 MMOL/L (21-32) Anion Gap 9 mmol/L (5-15) Blood Urea Nitrogen 5 mg/dL (7-18) L Creatinine 0.6 MG/DL (0.55-1.30) Estimat Glomerular Filtration Rate > 60 mL/min (>60) Glucose Level 73 MG/DL (74-106) L Calcium Level 8.5 MG/DL (8.5-10.1) Total Bilirubin 2.8 MG/DL (0.2-1.0) H Direct Bilirubin 1.6 MG/DL (0.0-0.3) H Aspartate Amino Transf (AST/SGOT) 254 U/L (15-37) H Alanine Aminotransferase (ALT/SGPT) 424 U/L (12-78) H Alkaline Phosphatase 166 U/L (46-116) H Total Protein 7.2 G/DL (6.4-8.2) Albumin 3.0 G/DL (3.4-5.0) L Globulin 4.2 g/dL Albumin/Globulin Ratio 0.7 (1.0-2.7) L Current Medications Medications (Trade) Dose Ordered Sig/Sarika Route PRN Reason Start Time Stop Time Status Last Admin Dose Admin Acetaminophen (Tylenol) 650 mg Q4H PRN ORAL Mild Pain (Pain Scale 1-3) 06/16/17 03:30 07/16/17 03:29 06/16/17 17:48 Dextrose/Sodium Chloride 1,000 ml @ 50 mls/hr Q20H IV 06/16/17 03:30 07/16/17 03:29 06/16/17 03:52 Morphine Sulfate (Morphine Sulfate) 2 mg Q4H PRN IVP For Pain 06/16/17 03:30 06/23/17 03:29 06/16/17 14:55 Ondansetron HCl (Zofran) 4 mg Q4H PRN IVP Nausea & Vomiting 06/16/17 03:30 07/16/17 03:29 Garima Elizabeth M.D. Jun 17, 2017 10:07
[2017-06-17 12:00] VITALS: BP 99/57
[2017-06-17] MEDS: Morphine Sulfate 2mg/ml Inj IVP PRN (13:16)
--- NOTE | 2017-06-17 14:15 | General Surgery Progress Note ---
General Surgery-Progress Note Subjective Symptoms: improved, pain absent Objective Last 24 Hour Vital Signs Date Time Temp Pulse Resp B/P (MAP) Pulse Ox O2 Delivery O2 Flow Rate FiO2 06/17/17 13:46 97.8 06/17/17 13:16 97.8 06/17/17 12:00 98.4 72 20 99/57 98 98.4 06/17/17 08:00 97.8 105 16 109/72 97 97.8 06/17/17 04:46 97.9 85 20 102/63 95 Room Air 97.9 06/17/17 00:24 97.7 90 20 100/58 97 Room Air 97.7 06/16/17 20:13 97.5 91 20 107/57 96 Room Air 97.5 06/16/17 18:47 97.4 06/16/17 17:48 97.4 06/16/17 14:55 97.4 I&O Intake and Output 06/16/17 06/17/17 19:00 07:00 Intake Total 1940 ml 250 ml Balance 1940 ml 250 ml Intake Oral 240 ml IV Total 1700 ml 250 ml # Voids 3 Respiratory: clear Abdomen: soft, flat, non-tender, present bowel sounds Extremities: no tenderness Laboratory Tests Test 06/17/17 06:20 White Blood Count 4.4 K/UL (4.8-10.8) L Red Blood Count 3.84 M/UL (4.20-5.40) L Hemoglobin 11.9 G/DL (12.0-16.0) L Hematocrit 34.7 % (37.0-47.0) L Mean Corpuscular Volume 90 FL (80-99) Mean Corpuscular Hemoglobin 31.0 PG (27.0-31.0) Mean Corpuscular Hemoglobin Concent 34.2 G/DL (32.0-36.0) Red Cell Distribution Width 12.3 % (11.6-14.8) Platelet Count 284 K/UL (150-450) Mean Platelet Volume 7.9 FL (6.5-10.1) Neutrophils (%) (Auto) 59.4 % (45.0-75.0) Lymphocytes (%) (Auto) 30.8 % (20.0-45.0) Monocytes (%) (Auto) 6.5 % (1.0-10.0) Eosinophils (%) (Auto) 2.6 % (0.0-3.0) Basophils (%) (Auto) 0.7 % (0.0-2.0) Sodium Level 142 MMOL/L (136-145) Potassium Level 3.5 MMOL/L (3.5-5.1) Chloride Level 107 MMOL/L (98-107) Carbon Dioxide Level 26 MMOL/L (21-32) Anion Gap 9 mmol/L (5-15) Blood Urea Nitrogen 5 mg/dL (7-18) L Creatinine 0.6 MG/DL (0.55-1.30) Estimat Glomerular Filtration Rate > 60 mL/min (>60) Glucose Level 73 MG/DL (74-106) L Calcium Level 8.5 MG/DL (8.5-10.1) Total Bilirubin 2.8 MG/DL (0.2-1.0) H Direct Bilirubin 1.6 MG/DL (0.0-0.3) H Aspartate Amino Transf (AST/SGOT) 254 U/L (15-37) H Alanine Aminotransferase (ALT/SGPT) 424 U/L (12-78) H Alkaline Phosphatase 166 U/L (46-116) H Total Protein 7.2 G/DL (6.4-8.2) Albumin 3.0 G/DL (3.4-5.0) L Globulin 4.2 g/dL Albumin/Globulin Ratio 0.7 (1.0-2.7) L Assessment Additional Comments Cholelithiasis Plan Additional Comments patient can be discharged home to be followed at [facility] facility GARRETT IRAHETA Jun 17, 2017 14:15
--- NOTE | 2017-06-17 14:21 | GI Progress Note ---
Assessment/Plan Problems: (1) Cholecystitis ICD Codes: K81.9 - Cholecystitis, unspecified SNOMED: 89643638 Status: stable Status Narrative Discussed with Dr. Keith. Assessment/Plan f/u surgical recs >> no surgical intervention at this time abdominal U/S reviewed HIDA >> Delayed tracer excretion, suspected on the basis of hepatocellular disease. Patent cystic duct and common bile duct. okay for DC per GI standpoint adv diet as tolerated pain mgmt ppi trend LFTs fu labs Subjective Gastrointestinal/Abdominal: Reports: no symptoms Objective Last 24 Hour Vital Signs Date Time Temp Pulse Resp B/P (MAP) Pulse Ox O2 Delivery O2 Flow Rate FiO2 06/17/17 13:46 97.8 06/17/17 13:16 97.8 06/17/17 12:00 98.4 72 20 99/57 98 98.4 06/17/17 08:00 97.8 105 16 109/72 97 97.8 06/17/17 04:46 97.9 85 20 102/63 95 Room Air 97.9 06/17/17 00:24 97.7 90 20 100/58 97 Room Air 97.7 06/16/17 20:13 97.5 91 20 107/57 96 Room Air 97.5 06/16/17 18:47 97.4 06/16/17 17:48 97.4 06/16/17 14:55 97.4 Intake and Output 06/16/17 06/17/17 19:00 07:00 Intake Total 1940 ml 250 ml Balance 1940 ml 250 ml Intake Oral 240 ml IV Total 1700 ml 250 ml # Voids 3 Laboratory Tests Test 06/17/17 06:20 White Blood Count 4.4 K/UL (4.8-10.8) L Red Blood Count 3.84 M/UL (4.20-5.40) L Hemoglobin 11.9 G/DL (12.0-16.0) L Hematocrit 34.7 % (37.0-47.0) L Mean Corpuscular Volume 90 FL (80-99) Mean Corpuscular Hemoglobin 31.0 PG (27.0-31.0) Mean Corpuscular Hemoglobin Concent 34.2 G/DL (32.0-36.0) Red Cell Distribution Width 12.3 % (11.6-14.8) Platelet Count 284 K/UL (150-450) Mean Platelet Volume 7.9 FL (6.5-10.1) Neutrophils (%) (Auto) 59.4 % (45.0-75.0) Lymphocytes (%) (Auto) 30.8 % (20.0-45.0) Monocytes (%) (Auto) 6.5 % (1.0-10.0) Eosinophils (%) (Auto) 2.6 % (0.0-3.0) Basophils (%) (Auto) 0.7 % (0.0-2.0) Sodium Level 142 MMOL/L (136-145) Potassium Level 3.5 MMOL/L (3.5-5.1) Chloride Level 107 MMOL/L (98-107) Carbon Dioxide Level 26 MMOL/L (21-32) Anion Gap 9 mmol/L (5-15) Blood Urea Nitrogen 5 mg/dL (7-18) L Creatinine 0.6 MG/DL (0.55-1.30) Estimat Glomerular Filtration Rate > 60 mL/min (>60) Glucose Level 73 MG/DL (74-106) L Calcium Level 8.5 MG/DL (8.5-10.1) Total Bilirubin 2.8 MG/DL (0.2-1.0) H Direct Bilirubin 1.6 MG/DL (0.0-0.3) H Aspartate Amino Transf (AST/SGOT) 254 U/L (15-37) H Alanine Aminotransferase (ALT/SGPT) 424 U/L (12-78) H Alkaline Phosphatase 166 U/L (46-116) H Total Protein 7.2 G/DL (6.4-8.2) Albumin 3.0 G/DL (3.4-5.0) L Globulin 4.2 g/dL Albumin/Globulin Ratio 0.7 (1.0-2.7) L Height (Feet): 5 Height (Inches): 4.00 Weight (Pounds): 210 General Appearance: WD/WN, no apparent distress, alert Cardiovascular: normal rate Respiratory/Chest: normal breath sounds, no respiratory distress Abdominal Exam: normal bowel sounds, non tender, soft Extremities: normal range of motion, non-tender Cora Merritt N.P. Jun 17, 2017 14:21
--- NOTE | 2017-06-17 14:28 | General Progress Note ---
Assessment/Plan Problem List: (1) Acute cholecystitis ICD Codes: K81.0 - Acute cholecystitis SNOMED: 49582547 Status: stable, progressing, tolerating diet Assessment/Plan dc home w hosp meds if clear Subjective Constitutional: Reports: weakness Allergies: Coded Allergies: No Known Allergies (Unverified , 06/15/17) All Systems: reviewed and negative except above Subjective calm wants to go home Objective Last 24 Hour Vital Signs Date Time Temp Pulse Resp B/P (MAP) Pulse Ox O2 Delivery O2 Flow Rate FiO2 06/17/17 13:46 97.8 06/17/17 13:16 97.8 06/17/17 12:00 98.4 72 20 99/57 98 98.4 06/17/17 08:00 97.8 105 16 109/72 97 97.8 06/17/17 04:46 97.9 85 20 102/63 95 Room Air 97.9 06/17/17 00:24 97.7 90 20 100/58 97 Room Air 97.7 06/16/17 20:13 97.5 91 20 107/57 96 Room Air 97.5 06/16/17 18:47 97.4 06/16/17 17:48 97.4 06/16/17 14:55 97.4 Intake and Output 06/16/17 06/17/17 19:00 07:00 Intake Total 1940 ml 250 ml Balance 1940 ml 250 ml Intake Oral 240 ml IV Total 1700 ml 250 ml # Voids 3 Laboratory Tests 06/17/17 06:20: White Blood Count 4.4L, Red Blood Count 3.84L, Hemoglobin 11.9L, Hematocrit 34.7L, Mean Corpuscular Volume 90, Mean Corpuscular Hemoglobin 31.0, Mean Corpuscular Hemoglobin Concent 34.2, Red Cell Distribution Width 12.3, Platelet Count 284, Mean Platelet Volume 7.9, Neutrophils (%) (Auto) 59.4, Lymphocytes (% ) (Auto) 30.8, Monocytes (%) (Auto) 6.5, Eosinophils (%) (Auto) 2.6, Basophils ( %) (Auto) 0.7, Sodium Level 142, Potassium Level 3.5, Chloride Level 107, Carbon Dioxide Level 26, Anion Gap 9, Blood Urea Nitrogen 5L, Creatinine 0.6, Estimat Glomerular Filtration Rate > 60, Glucose Level 73L, Calcium Level 8.5, Total Bilirubin 2.8H, Direct Bilirubin 1.6H, Aspartate Amino Transf (AST/SGOT) 254H, Alanine Aminotransferase (ALT/SGPT) 424H, Alkaline Phosphatase 166H, Total Protein 7.2, Albumin 3.0L, Globulin 4.2, Albumin/Globulin Ratio 0.7L Height (Feet): 5 Height (Inches): 4.00 Weight (Pounds): 210 General Appearance: alert EENT: normal ENT inspection Neck: normal alignment Cardiovascular: normal peripheral pulses, normal rate, regular rhythm Respiratory/Chest: chest wall non-tender, lungs clear, normal breath sounds Abdomen: normal bowel sounds, non tender, soft Extremities: normal inspection Edema: no edema noted Arm (L), no edema noted Arm (R), no edema noted Leg (L), no edema noted Leg (R), no edema noted Pedal (L), no edema noted Pedal (R), no edema noted Generalized Neurologic: responsive, motor weakness Skin: normal pigmentation, warm/dry MATTHEW CRUZ Jun 17, 2017 14:28
--- NOTE | 2017-06-17 17:55 | Discharge Summary ---
Discharge Summary Hospital Course Date of Admission Jun 15, 2017 at 21:06 Date of Discharge Jun 17, 2017 at 15:15 Admitting Diagnosis acute cholecystitis HPI Lauren Cabello is a 42 year old female who was admitted on Jun 15, 2017 at 21: 06 for Acute Cholecystitis Hospital Course [id number] Discharge Discharge Disposition Patient was discharged to Home (01) Discharge Diagnoses: Daya Nassar NP Jun 17, 2017 17:55
--- NOTE | 2017-06-18 01:30 | Discharge Summary 2 SIG ---
DATE OF ADMISSION: 06/15/2017 DATE OF DISCHARGE: 06/17/2017 CONSULTANTS: 1. Edwin Keith M.D. 2. Jaziel Azul M.D. 3. Garima Elizabeth M.D. BRIEF HOSPITAL COURSE: The patient is a 42-year-old female, who lives at home, presented with two days of increased nausea, vomiting, and abdominal pain. She has not been eating for a day. She had similar type of pain a month prior, however, did not seek treatment. She had a BM on the day of admission and does not have any medical history, except for irregular menses, the patient had an IUD. On evaluation at ED, blood work showed leukocytosis. WBC was 12. Total bilirubin was elevated. Liver function tests were elevated. Alkaline phosphatase was high. Lipase was 100. She had an abdominal ultrasound that showed cholelithiasis with gallbladder wall markedly thickened representing possibly acute cholecystitis. She was then placed on NPO and was started on IV fluids. She was given IV antibiotics at ED and was eventually admitted for further evaluation. Dr. Azul was consulted. The patient's pain had improved and there was no nausea. She was eventually started on diet. She underwent a HIDA scan that showed delayed tracer excretion, suspected on basis of hepatocellular disease. There was patent cystic duct and common bile duct. Leukocytosis resolved. Leukocytosis possibly reactive. She was observed off antibiotic treatment. She was tolerating diet. She was eventually discharged home. Advised to follow up with PMD as outpatient. FINAL DIAGNOSIS: Acute cholecystitis. DISPOSITION: The patient was discharged home. DISCHARGE INSTRUCTIONS: Follow up with PCP for further evaluation of hepatocellular disease, which can be done as outpatient. Alfredo Hughes D.O. I have been assigned to dictate discharge summary on this account and I was not involved in the patient's management. Daya Nassar N.P. DR: Jeremy JOB#: [id number] CC: MAGALI
== END 2017-06-17 15:15 | disposition home or self-care (01) ==
LOC: EMR 19:28 → EDBEDREQ 20:47 → 4W 21:06 → EDBEDREQ 06-16 04:30
DX: K80.00 Calculus of gallbladder with acute cholecystitis without obstruction (principal); N39.0 Urinary tract infection, site not specified; D64.9 Anemia, unspecified
CPT/HCPCS: 36415; 76700; 78266; 80048; 80053; 81003; 81025; 82248; 83690; 85007; 85025; 85610; 85730; 86850; 86900; 86901; 99285; J2405